=== PATIENT | male | born 1970 | race Caucasian/White ===

== ENCOUNTER 2020-12-19 05:52 | Day surgery (SDC) | payer OTHER, SELFPAY ==
[~2020-12-19] VITALS: Ht 180.3 cm; Wt 101.2 kg
[2020-12-19] MEDS ORDERED: diphenhydrAMINE 50 MG/ML VIAL ONE (07:13)
[2020-12-19] MEDS ORDERED: MIDAZOLAM 5 MG/5 ML VIAL ONE ×2 (07:14→07:15)
[2020-12-19] MEDS ORDERED: fentaNYL citrate 0.05 MG/ML VIAL ONE (07:14)
[2020-12-19] MEDS ORDERED: LIDOCAINE 2% 100 MG/5 ML UJET TP ONE (07:14)
[2020-12-19] MEDS ORDERED: fentaNYL citrate 0.05 MG/ML VIAL IVP ONE (08:25)
[2020-12-19] MEDS ORDERED: MIDAZOLAM 2 MG/2 ML VIAL IVP ONE (08:25)
== END 2020-12-19 09:15 | disposition home or self-care (01) ==
LOC: MDS 05:52 → MMU 05:53 → MDS 09:15
PROVIDERS: ATTEND Internal Medicine Gastroenterology
DX: Z12.11 Encounter for screening for malignant neoplasm of colon (principal); K63.5 Polyp of colon; G47.33 Obstructive sleep apnea (adult) (pediatric); Z79.899 Other long term (current) drug therapy; Z20.822 Contact with and (suspected) exposure to COVID-19
CPT/HCPCS: 45385; 87426; 88305; J2250; J3010; J1200